=== PATIENT | male | born 2000 | race Caucasian/White ===

== ENCOUNTER 2023-09-14 12:42 | Emergency (ER) | payer SELFPAY ==
[~2023-09-14] VITALS: Ht 172.7 cm; Wt 70.0 kg
[2023-09-14 12:45] VITALS: O2SAT 98
[2023-09-14] MEDS ORDERED: OLAN2.5T29 PO (12:47)
[2023-09-14] MEDS ORDERED: HALO1TAB2 GT (12:47)
[2023-09-14] MEDS ORDERED: BUSP5TAB3 PO (12:47)
[2023-09-14] MEDS ORDERED: IBUPROFEN 400MG TABLET PO ONE ×2 (13:00→17:45)
[2023-09-14] MEDS ORDERED: IBUP-2437 MT (17:40)
[2023-09-14 18:27] VITALS: BP 112/78; PULSE 91; RESP 16; TEMP 98.8
== END 2023-09-14 18:35 | disposition home or self-care (01) ==
LOC: ER 12:42
DX: S39.012A Strain of muscle, fascia and tendon of lower back, initial encounter (principal); F41.9 Anxiety disorder, unspecified; F31.9 Bipolar disorder, unspecified; F20.9 Schizophrenia, unspecified; X58.XXXA Exposure to other specified factors, initial encounter; Y93.89 Activity, other specified; Y92.89 Other specified places as the place of occurrence of the external cause; Y99.8 Other external cause status
CPT/HCPCS: 99283